=== PATIENT | male | born 1970 | race Caucasian/White ===

== ENCOUNTER 2023-11-26 15:48 | Emergency (ER) | payer BC ==
--- NOTE | 2023-11-26 15:51 | ERPHSYRPT ---
- History of Present Illness Time Seen by Provider: 11/26/23 15:50 Source: patient Exam Limitations: no limitations Physician History: This is an obese 52-year-old white male patient who presents with shortness of breath and bilateral chest achiness with left side worse than the right. Patient was diagnosed with a bacterial pneumonia approximately 2 weeks ago was placed on antibiotics and per his description, steroids. Symptoms have slightly improved but have persisted. Timing/Duration: week(s) (2) Activities at Onset: none Severity of Dyspnea-Max: mild (To moderate) Severity of Dyspnea-Current: mild (To moderate) Possible Cause: no prior episodes Modifying Factors: Improves With: coughing Associated Symptoms: cough, chest pain/discomfort (Mild bilateral discomfort) Allergies/Adverse Reactions: lisinopril Adverse Reaction (Verified 11/26/23 15:52) Home Medications: Amlodipine Besylate 5 mg [Norvasc 5 mg] 5 mg PO DAILY 11/26/23 [History] Atorvastatin Calcium 40 mg PO DAILY 11/26/23 [History] Furosemide 40 mg [Lasix 40 MG] 40 mg PO DAILY 11/26/23 [History] Valsartan [Diovan] 1 ea DAILY 11/26/23 [History] Travel Risk - International Travel Have you traveled outside of the country in past 3 weeks: No - Coronavirus Screening Are you exhibiting any of the following symptoms?: Yes Symptoms: Cough: New Onset, Shortness of Breath Close contact with a COVID-19 positive Pt in past 14-21 Days: No - Review of Systems Constitutional: No Symptoms Eyes: No Symptoms Ears, Nose, & Throat: No Symptoms Respiratory: Dyspnea on Exertion ([place]AMPBELL) Cardiac: Chest Pain Abdominal/Gastrointestinal: No Symptoms Genitourinary Symptoms: No Symptoms Musculoskeletal: No Symptoms Skin: No Symptoms Neurological: No Symptoms Psychological: No Symptoms Endocrine: No Symptoms Hematologic/Lymphatic: No Symptoms Immunological/Allergic: No Symptoms All Other Systems: Reviewed and Negative - Past Medical History Pertinent Past Medical History: Yes - Past Surgical History Past Surgical History: Yes - Nursing Vital Signs Nursing Vital Signs: Initial Vital Signs Temperature 98.0 F 11/26/23 15:54 Pulse Rate 76 11/26/23 15:54 Respiratory Rate 24 11/26/23 15:54 Blood Pressure 142/79 11/26/23 15:54 O2 Sat by Pulse Oximetry 95 11/26/23 15:54 Pain Scale Pain Intensity 3 - Physical Exam General Appearance: no apparent distress, alert, anxiety, obese Eye Exam: PERRL/EOMI, eyes nml inspection Ears, Nose, Throat Exam: hearing grossly normal, normal ENT inspection, normal pharynx Neck Exam: normal inspection, non-tender, supple, full range of motion Respiratory Exam: normal breath sounds, lungs clear, airway intact, No chest tenderness, No respiratory distress Cardiovascular/Chest Exam: normal heart sounds, regular rate/rhythm Abdominal/Gastrointestinal Exam: soft, normal bowel sounds, No tenderness Rectal Exam: not done Extremity Exam: non-tender, normal range of motion, normal inspection, normal capillary refill, no calf tenderness, no pedal edema, pelvis stable Neurologic Exam: alert, oriented x 3, cooperative, principal planner II-XII nml as tested, normal mood/affect, nml cerebellar function, nml station & gait, sensation nml Skin Exam: normal color, warm, dry Lymphatic Exam: No adenopathy SpO2 Interpretation: normal O2 Delivery: Room Air - Course Nursing assessment & vital signs reviewed: Yes EKG Interpreted by Me: RATE (75), Sinus Rhythm, NORMAL AXIS, NORMAL INTERVALS, NORMAL QRS, Other (No acute ischemic changes on today's twelve-lead EKG) Ordered Tests: Active Orders 24 hr Category Date Time Status Medical Customer Service Representative STAT Care 11/26/23 16:04 Active EKG-ER Only STAT Care 11/26/23 16:03 Active IV Insertion STAT Care 11/26/23 16:03 Active Pulse Oximetry (ED) STAT Care 11/26/23 16:03 Active CHEST WITH CONTRAST [CT] Stat Exams 11/26/23 18:09 Taken BLOOD CULTURE Stat Lab 11/26/23 17:40 Received CBC W DIFF Stat Lab 11/26/23 17:40 Completed CMP Stat Lab 11/26/23 17:40 Completed D-DIMER QUANTITATIVE Stat Lab 11/26/23 17:40 Completed NT PRO BNPII Stat Lab 11/26/23 17:40 Completed TROPONIN Q4H Lab 11/26/23 17:40 Completed TROPONIN Q4H Lab 11/26/23 19:26 Completed TROPONIN Q4H Lab 11/27/23 00:15 Ordered Medication Summary Discontinued Medications Generic Name Dose Route Start Last Admin Trade Name Freq PRN Reason Stop Dose Admin Sodium Chloride 500 mls @ 500 mls/hr 11/26/23 18:09 11/26/23 20:21 Sodium Chloride 0.9% 500 Ml IV 11/26/23 19:08 Infused .Q1H ONE Infusion Sodium Chloride Confirm 11/26/23 18:29 Sodium Chloride 0.9% 500 Ml Administered 11/26/23 18:30 Dose 500 mls @ ud IV .STK-MED ONE Lab/Rad Data: Laboratory Result Diagrams 11/26/23 17:40 11/26/23 17:40 Laboratory Results 11/26/23 11/26/23 11/26/23 Range/Units 19:26 17:40 17:40 WBC (4.0-10.5) x10^3/uL RBC (4.1-5.6) x10^6/uL Hgb (12.5-18.0) g/dL Hct (42-50) % MCV (78-100) fL MCH (26-32) pg MCHC (32-36) g/dL RDW (11.5-14.0) % Plt Count (150-450) x10^3/uL MPV (7.5-11.0) fL Gran % (36.0-66.0) % Immature Gran % (Auto) (0.00-0.4) % Nucleat RBC Rel Count (0.00-0.1) % Eos # (Auto) (0-0.5) x10^3/uL Immature Gran # (Auto) (0.00-0.03) x10^3u/L Absolute Lymphs (auto) (1.0-4.6) x10^3/uL Absolute Monos (auto) (0.0-1.3) x10^3/uL Absolute Nucleated RBC (0.00-0.01) x10^3u/L Lymphocytes % (24.0-44.0) % Monocytes % (0.0-12.0) % Eosinophils % (0.00-5.0) % Basophils % (0.0-0.4) % Absolute Granulocytes (1.4-6.9) x10^3/uL Basophils # (0-0.4) x10^3/uL D-Dimer (0.0-0.50) mg/L Sodium (137-145) mmol/L Potassium (3.5-5.1) mmol/L Chloride (98-107) mmol/L Carbon Dioxide (22-30) mmol/L Anion Gap (5-15) MEQ/L BUN (9-20) mg/dL Creatinine (0.66-1.25) mg/dL Estimated GFR ML/MIN Glucose (74-106) mg/dL Calcium (8.4-10.2) mg/dL Total Bilirubin (0.2-1.3) mg/dL AST (17-59) U/L ALT (0-50) U/L Alkaline Phosphatase (38-126) U/L Troponin I < 0.012 < 0.012 (0.000-0.034) ng/mL NT-Pro-B Natriuret Pep < 20.0 (<300) pg/mL Serum Total Protein (6.3-8.2) g/dL Albumin (3.5-5.0) g/dL Influenza Type A Ag NEGATIVE (NEGATIVE) Influenza Type B Ag NEGATIVE (NEGATIVE) RSV (PCR) NEGATIVE (NEGATIVE) SARS-CoV-2 (PCR) NEGATIVE (NEGATIVE) 11/26/23 11/26/23 11/26/23 Range/Units 17:40 17:40 17:40 WBC 12.7 H (4.0-10.5) x10^3/uL RBC 4.50 (4.1-5.6) x10^6/uL Hgb 13.8 (12.5-18.0) g/dL Hct 42.0 (42-50) % MCV 93.3 (78-100) fL MCH 30.7 (26-32) pg MCHC 32.9 (32-36) g/dL RDW 14.0 (11.5-14.0) % Plt Count 337 (150-450) x10^3/uL MPV 10.5 (7.5-11.0) fL Gran % 55.7 (36.0-66.0) % Immature Gran % (Auto) 0.3 (0.00-0.4) % Nucleat RBC Rel Count 0.0 (0.00-0.1) % Eos # (Auto) 0.54 H (0-0.5) x10^3/uL Immature Gran # (Auto) 0.04 H (0.00-0.03) x10^3u/L Absolute Lymphs (auto) 3.53 (1.0-4.6) x10^3/uL Absolute Monos (auto) 1.41 H (0.0-1.3) x10^3/uL Absolute Nucleated RBC 0.00 (0.00-0.01) x10^3u/L Lymphocytes % 27.8 (24.0-44.0) % Monocytes % 11.1 (0.0-12.0) % Eosinophils % 4.3 (0.00-5.0) % Basophils % 0.8 (0.0-0.4) % Absolute Granulocytes 7.06 H (1.4-6.9) x10^3/uL Basophils # 0.10 (0-0.4) x10^3/uL D-Dimer 0.57 H (0.0-0.50) mg/L Sodium 137 (137-145) mmol/L Potassium 4.7 (3.5-5.1) mmol/L Chloride 101 (98-107) mmol/L Carbon Dioxide 27 (22-30) mmol/L Anion Gap 13.9 (5-15) MEQ/L BUN 15 (9-20) mg/dL Creatinine 0.72 (0.66-1.25) mg/dL Estimated GFR 111.3 ML/MIN Glucose 119 H (74-106) mg/dL Calcium 9.4 (8.4-10.2) mg/dL Total Bilirubin 0.50 (0.2-1.3) mg/dL AST 32 (17-59) U/L ALT 50 (0-50) U/L Alkaline Phosphatase 83 (38-126) U/L Troponin I (0.000-0.034) ng/mL NT-Pro-B Natriuret Pep (<300) pg/mL Serum Total Protein 7.7 (6.3-8.2) g/dL Albumin 4.2 (3.5-5.0) g/dL Influenza Type A Ag (NEGATIVE) Influenza Type B Ag (NEGATIVE) RSV (PCR) (NEGATIVE) SARS-CoV-2 (PCR) (NEGATIVE) - Progress Progress: improved, re-examined Air Movement: good Progress Note: 11/26/23 21:09 This patient's medical issue is 1 of moderate complexity. Level complexity in the workup performed is based on the review of the patient's past medical history, review of patient's medication list, review the patient's drug allergy list, history present illness and physical findings on examination. Workup in this patient includes placement of intravenous line, CBC, CMP, twelve-lead EKG, troponin level, D-dimer level, I reviewed the results of the laboratory data and interpreted. Patient had an elevated D-dimer level. We therefore ordered a CT scan of the chest with contrast. CT scan of the chest with contrast was interpreted by the radiologist and I reviewed the impression. There are no comparison films available. Patient does not have a pulmonary embolus. There is right lower lobe opacification with po stobstructive atelectasis. rule out aspiration versus mucous phlegm versus endobronchial lesion. I discussed these findings with the patient. 11/26/23 21:13 Blood Culture(s) Obtained: Yes Antibiotics given: Yes Counseled pt/family regarding: diagnosis, need for follow-up, rad results Medical Desision Making - Diagnostic Testing Diagnostic test were ordered, analyzed, and reviewed by me: Yes Radiological Interpretation: Reviewed by me, Teleradiologist Report - Risk of complications The pt has a mod risk of morbidity or mortality based on: Need for prescription drug management - Departure Departure Disposition: Home Clinical Impression: Shortness of breath, Postobstructive pneumonia Condition: Stable Critical Care Time: No Additional Instructions: Stop smoking. Avoid exposure to smoke. Take your medications as prescribed. Follow-up with your primary care provider tomorrow, 11/27/2023, by phone to make a follow-up appointment in the next 3 to 5 days to discuss the findings on the CT scan of the chest. At the pharmacy, purchase [id number] Mucinex DM 12- hour tablets. Take as directed
[2023-11-26 15:55] VITALS: TEMP 98
[2023-11-26 17:53] LABS: Absolute Neutrophil Ct (ANC) 7.06 x10^3/uL (1.4-6.9); BASOPHIL % 0.8 % (0.0-0.4); Eosinophil % 4.3 % (0.00-5.0); Eosinophil (Absolute #) 0.54 x10^3/uL (0-0.5); Hemoglobin 13.8 g/dL (12.5-18.0); IMMATURE GRAN # 0.04 x10^3u/L (0.00-0.03); IMMATURE GRAN % 0.3 % (0.00-0.4); Lymphocyte (Absolute #) 3.53 x10^3/uL (1.0-4.6); Lymphocytes % 27.8 % (24.0-44.0); Mean Cell Volume 93.3 fL (78-100); Mean Corpuscular Hemoglobin 30.7 pg (26-32); Mean Corpuscular Hgb Concent. 32.9 g/dL (32-36); Mean Platelet Volume 10.5 fL (7.5-11.0); Monocyte (Absolute #) 1.41 x10^3/uL (0.0-1.3); Monocytes % 11.1 % (0.0-12.0); Neutrophil % 55.7 % (36.0-66.0); Platelet Count 337 x10^3/uL (150-450); White Blood Count 12.7 x10^3/uL (4.0-10.5)
[2023-11-26 18:06] LABS: ALBUMIN 4.2 g/dL (3.5-5.0); ANION GAP 13.9 MEQ/L (5-15); BILIRUBIN,TOTAL 0.5 mg/dL (0.2-1.3); Calcium 9.4 mg/dL (8.4-10.2); Creatinine 1 0.72 mg/dL (0.66-1.25); EST GLOMERULAR FILTRATION RATE 111.3 ML/MIN; Potassium 4.7 mmol/L (3.5-5.1); Total Protein 7.7 g/dL (6.3-8.2)
[2023-11-26] MEDS ORDERED: Sodium Chloride 0.9% 500 ML 500 ML IV ONE ×2 (18:09→18:29)
[2023-11-26 18:19] LABS: NT PRO BNPII < 20.0 pg/mL (<300); TROPONIN < 0.012 ng/mL (0.000-0.034)
[2023-11-26 18:30] LABS: INFLUENZA A NEGATIVE (NEGATIVE); INFLUENZA B NEGATIVE (NEGATIVE); RESPIRATORY SYNCTIAL VIRUS NEGATIVE (NEGATIVE); SARS-CoV-2 Xpert Express NEGATIVE (NEGATIVE)
[2023-11-26 21:18] VITALS: BP 145/74; PULSE 66; RESP 22; O2SAT 94
[2023-11-26] MEDS ORDERED: AMOXIL 500 MG PO ONE (21:19)
[2023-11-26] MEDS ORDERED: Flagyl 500 MG PO ONE (21:19)
[2023-11-26] MEDS ORDERED: DELTASONE 20 MG PO ONE (21:19)
[2023-11-26] MEDS ORDERED: HYDROCODONE-ACETAMIN 2.5-108/5 ML SOLUTION PO STA (21:19)
[2023-11-26] MEDS ORDERED: HYDROCODONE-ACETAMIN 2.5-108/5 ML SOLUTION ONE (21:25)
[2023-11-26] MEDS ORDERED: Flagyl 500 MG ONE (21:26)
[2023-11-26] MEDS ORDERED: AMOXIL 500 MG ONE (21:26)
[2023-11-26] MEDS ORDERED: DELTASONE 20 MG ONE (21:26)
--- NOTE | 2023-11-27 09:02 | XRAY ---
Indication: Chest pain. Elevated d-dimer. Multiple contiguous axial images obtained through the chest using 80 cc Isovue 370 contrast and PE protocol. Comparison: None Good opacification pulmonary arteries to includes the lobar and segmental branches. No pulmonary embolus. Heart not enlarged. Aorta is normal in course and caliber. No pathologic mediastinal/hilar lymphadenopathy. Opacification of the right lower lobe bronchus and distal branches either aspiration versus mucous plugging versus endobronchial lesion. Subsequent postobstructive right lower lobe atelectasis with right lung volume loss. Remaining lungs demonstrates small right apical calcified granuloma. Lingula demonstrates 4 mm subpleural noncalcified nodule possibly granulomatous in this demographic. Minimal left lung base fibrosis/scarring. No infiltrate or effusion. Bony thorax demonstrate minimal degenerative changes throughout the spine, old sternal fracture, and old left rib fractures. Limited upper abdomen demonstrates fatty liver and incompletely visualized large midline ventral hernia with herniated omental fat and transverse colon. Impression: 1. Negative pulmonary embolus. 2. Opacification right lower lobe bronchus and distal branches. Rule out aspiration versus mucous plugging versus endobronchial lesion. Subsequent postobstructive right lower lobe atelectasis. 3. Chronic findings including calcified/noncalcified nodules probably granulomatous, left lung fibrosis/scarring, chronic bony findings, fatty liver, and incompletely visualized large abdominal ventral hernia.
== END 2023-11-26 21:46 | disposition home or self-care (01) ==
LOC: ED 15:48
DX: J18.9 Pneumonia, unspecified organism (principal); R06.02 Shortness of breath; R07.9 Chest pain, unspecified; Z79.899 Other long term (current) drug therapy
CPT/HCPCS: 0241U; 36000; 36415; 71260; 80053; 83880; 84484; 85025; 85379; 87040; 93005; 93041; 94760; 96360; 99284; A9270-GY